=== PATIENT | female | born 1950 | race Two or more races ===

== ENCOUNTER 2017-02-23 10:56 | Outpatient (CLI) | payer MEDICARE ==
[2017-02-23 11:31] LABS: BASOPHILS % 0.5 (0.0-1.5); EOSINOPHILS % 1.9 % (0.0-6.8); MEAN CORPUSCULAR VOLUME 93.9 fl (80.0-100.0); NEUTROPHILS # 3.6 # k/uL (1.4-7.7)
[2017-02-23 12:18] LABS: eGFR (African) > 60; eGFR (Non-African) > 60
--- NOTE | 2017-02-23 15:00 | Diagnostic Imaging Report ---
YAMILE VAZQUEZ - TAMERA [facility] [address] [facility].[address] [address] Report Submission Date: Feb 23, 2017 1:18:00 PM CDT Patient Study Name: ANNEMARIE WU I Date: Feb 23, 2017 11:37:06 AM CDT Modality Type: US Gender: F Description: BILAT US DVT : 50 Institution: [facility] Physician: YAMILE VAZQUEZ - TAMERA Examination: Ultrasound vein History: Calf discomfort Findings: Sonographic evaluation of the lower extremity venous system from the groin to the popliteal fossa inclusive bilaterally. Difficult visualization of the mid femoral, distal femoral and popliteal veins due to pitting edema. Normal compressibility. No luminal filling defect. Normal waveforms and response to augmentation. No popliteal region fluid collection. Impression: No evidence for deep venous thrombosis. Electronically signed on Feb 23, 2017 1:18:00 PM CDT by: Toni YUSUF
--- NOTE | 2017-02-23 15:00 | Diagnostic Imaging Report ---
YAMILE VAZQUEZ - TAMERA [facility] [address] [facility].[address] [address] Report Submission Date: Feb 23, 2017 1:21:42 PM CDT Patient Study Name: ANNEMARIE WU I Date: Feb 23, 2017 12:13:41 PM CDT Modality Type: US Gender: F Description: UNILAT LTD STDY EXT VEINS : 50 Institution: [facility] Physician: YAMILE VAZQUEZ Examination: Ultrasound vein. History: Upper extremity swelling Comparison exams: None provided Findings: Sonographic evaluation of the upper extremity venous system including the internal jugular, subclavian, axillary, cephalic, brachial, basilic, radial , and ulnar veins. No evidence for luminal filling defect. Normal compressibility. Normal response to augmentation and respiratory variation. Impression: No evidence for venous thrombosis. Electronically signed on Feb 23, 2017 1:21:42 PM CDT by: Toni YUSUF
== END 2017-02-23 10:57 ==
LOC: RAD 10:56
PROVIDERS: ATTEND Family Medicine
DX: M79.89 Other specified soft tissue disorders (principal); Z00.00 Encounter for general adult medical examination without abnormal findings; E11.65 Type 2 diabetes mellitus with hyperglycemia; Z79.4 Long term (current) use of insulin
CPT/HCPCS: 36415; 80053; 80061; 83036; 85025; 86803; 93970; 93971

== ENCOUNTER 2018-05-03 09:22 | Outpatient (CLI) | payer MEDICARE, OTHER ==
--- NOTE | 2018-05-03 17:22 | Diagnostic Imaging Report ---
UCHE ALEMAN [facility] [address] [facility] [address] [address] Report Submission Date: May 03, 2018 4:31:38 PM FRYER OPERATOR Patient Study Name: MAYA WU Date: May 03, 2018 9:46:07 AM FRYER OPERATOR Modality Type: US Gender: F Description: US TRV : 50 Institution: [facility] Physician: UCHE ALEMAN Pelvic ultrasound with Doppler History: Vaginal bleeding in a postmenopausal female Transverse and longitudinal images were obtained through the pelvis endovaginally. Spectral and color flow imaging was performed. The uterus is retroverted. The uterus measures 6.8 x 4.7 x 6.2 cm in greatest dimension. The endometrium is markedly abnormally thickened for a postmenopausal female measuring 2.9 cm. This finding would be consistent with endometrial hyperplasia or endometrial carcinoma. There are a total of 3 myometrial fibroids. Two are present at the uterine body. One of these measures 1 cm and the other 1.2 cm in greatest dimension. There is a 3rd fundal fibroid measuring 1.4 cm in greatest dimension. The right ovary measures 2.5 x 2.2 x 2.2 cm in greatest dimension. There is an equivocal small calcification of the right ovary. There is normal flow to the right ovary. The left ovary measures 3.0 x 2.6 x 2.3 cm in greatest dimension and appears normal with normal flow. There is no free fluid in the pelvis. Impression: Equivocal small calcification of the right ovary. Otherwise, the ovaries are unremarkable. Markedly abnormally thickened endometrium in this postmenopausal female, consistent with either endometrial hyperplasia or endometrial carcinoma. Three small myometrial fibroids as described. Electronically signed on May 03, 2018 4:31:38 PM FRYER OPERATOR by: Jessica YUSUF
== END 2018-05-03 09:35 ==
LOC: RAD 09:22
PROVIDERS: ATTEND Family Medicine
DX: N89.8 Other specified noninflammatory disorders of vagina (principal); R10.2 Pelvic and perineal pain
CPT/HCPCS: 76830